=== PATIENT | male | born 1955 | race Caucasian/White ===

== ENCOUNTER 2019-07-23 11:24 | Outpatient (REF) | payer MEDICAID, SELFPAY ==
[2019-07-23 18:20] LABS: TSH (W/Ref FT4) 6.79 uIU/mL (0.36-3.74)
[2019-07-23 18:27] LABS: Hemoglobin A1C 5.9 % (3.8-5.6)
[2019-07-23 18:44] LABS: FREE T4 0.87 ng/dL (0.76-1.46)
== END 2019-07-23 11:44 ==
LOC: NCHCN 11:24
PROVIDERS: PCP Nurse Practitioner Family; Visit Provider Nurse Practitioner Family
DX: E03.9 Hypothyroidism, unspecified (principal); R53.83 Other fatigue; F17.210 Nicotine dependence, cigarettes, uncomplicated; R73.09 Other abnormal glucose
CPT/HCPCS: 83036; 84439; 84443

== ENCOUNTER 2020-03-06 18:34 | Outpatient (REF) | payer MEDICAID, SELFPAY ==
[2020-03-06 18:44] LABS: HCT 47.7 % (40.0-50.0); MCHC 33.5 % (32.0-36.0); MCV 92.4 fL (80-95); MPV 10.7 fL (8.0-11.0); Platelet Count 232 10^3/uL (130-400); RBC 5.16 10^6/uL (4.36-5.78); RDW 13.3 % (11.8-14.1); RDW-SD 45.5 fL; WBC 10.75 10^3/uL (4.4-10.8)
[2020-03-06 19:01] LABS: Anion Gap 9.6 mmol/L (3-11); BUN 18 mg/dL (7-18); CO2 25.4 mmol/L (21.0-32.0); CREATININE 0.96 mg/dL (0.70-1.30); Calcium 8.7 mg/dL (8.5-10.1); Calculated LDL 145 mg/dL (<100); Chloride 107 mmol/L (98-107); Cholesterol 192 mg/dL (<200); Glucose 99 mg/dL (74-106); HDL Cholesterol 33 mg/dL (40-60); Potassium 4.4 mmol/L (3.5-5.1); Sodium 142 mmol/L (136-145); TSH (W/Ref FT4) 3.83 uIU/mL (0.36-3.74); Triglyceride 70 mg/dL (<150)
[2020-03-06 19:15] LABS: Hemoglobin A1C 5.8 % (<5.7)
[2020-03-06 19:18] LABS: FREE T4 0.99 ng/dL (0.76-1.46)
== END 2020-03-06 18:54 ==
LOC: NCHCN 18:34
PROVIDERS: PCP Nurse Practitioner Family; Visit Provider Nurse Practitioner Family
DX: R73.03 Prediabetes (principal); R03.0 Elevated blood-pressure reading, without diagnosis of hypertension; E03.9 Hypothyroidism, unspecified; Z13.220 Encounter for screening for lipoid disorders
CPT/HCPCS: 80048; 80061; 85027; 83036; 84439; 84443

== ENCOUNTER 2020-03-27 02:39 | Outpatient (CLI) | payer MEDICAID, SELFPAY ==
[2020-03-28 16:50] LABS: COVID-19 RT-PCR UVMMC Result Negative (Negative)
== END 2020-03-27 02:59 ==
PROVIDERS: PCP Nurse Practitioner Family; Visit Provider Surgery
DX: Z11.59 Encounter for screening for other viral diseases (principal); Z01.818 Encounter for other preprocedural examination
CPT/HCPCS: U0003

== ENCOUNTER 2020-03-30 05:58 | Day surgery (SDC) | payer MEDICAID, SELFPAY ==
[2020-03-30 06:24] VITALS: BP 127/74; PULSE 67; RESP 18; TEMP 36.6; O2SAT 94
[2020-03-30] MEDS: Lactated Ringers 1,000 ML 80 ML IV (06:53)
--- NOTE | 2020-03-30 07:44 | BOWEL_PTH ---
PATIENT: Koffi Mendoza LOC: [facility] U#:[id number] AGE/SX: 64/M ROOM: RE03/30/[address]: Nicole Myrick : 1955 BED: DIS: 03/30/2020 SPEC #: [id number] RECD: 03/30/20 12:20 STATUS: KOURTNEY REQ #: [id number] YOU: 03/30/20 07:[address]: Nicole Myrick DEPT: Surgical Specimen RECD BY: Vane Page ENTERED: 03/30/20 12:21 SP TYPE: Bowel OTHR DR: Michelle Hernandez Tissues: 1 - BIOPSY BOWEL 2 - BIOPSY BOWEL Procedures: GROSS AND MICRO LEVEL 4 Comments: [id number]
--- NOTE | 2020-03-30 08:22 | W.PM.DSUDISC ---
Discharge Plan Disposition Patient Disposition: HOME Condition: Good Discharge Details Reason For Visit: colon scope Attending Provider: Nicole Myrick Primary Care Provider: Michelle Hernandez Home Meds and New Rx's Prescriptions: Continued levothyroxine 75 MCG tablet 75 mcg PO DAILY RF: 0 sildenafil [Viagra] 100 mg tablet 100 mg PO PRN PRNRF: 0 Chantix Continuing Month Box 1 mg tablet 1 mg PO BID RF: 0 Chantix Starting Month Box 0.5 mg (11)- 1 mg (42) tablets,dose pack See Rx Instructions PO PER PKG DIR RF: 0 Discontinued polyethylene glycol 3350 17 gram/dose powder 238 g PO ONCE Qty: 238 RF: 0 bisacodyl [Dulcolax (bisacodyl)] 5 mg tablet,delayed release (DR/EC) 5 mg PO ONCE Qty: 4 RF: 0 Discharge Instructions Additional Instructions: Findings:polyps x4 Follow up: repeat in 3-5 yrs Please call if you develop: fevers >101.5 Nausea or Vomiting Abdominal pain that is not transient DAY SURGERY UNIT POST COLONOSCOPY INSTRUCTIONS 1. Because there will be medication in your system for the next 24 hours, you may feel a little sleepy. Your coordination will be affected. Therefore: a. Do not drive or operate dangerous equipment for 24 hours. b. Do not drink alcohol beverages for 24 hours (not even beer). c. Plan to go home and rest for the day. 2. Generally there are no restrictions on your activity after a day or so has gone by, but you may feel a bit fatigued for a few days. 3 After you arrive home you may have a light meal and return to a normal diet as you can tolerate it without feeling sick to your stomach. 4. After surgery, you may feel pain or discomfort. This should be only transient, but if it persists please contact your doctor. 5. If there are any questions regarding the findings of your procedure, please feel free to contact your doctor. 6. If you are unable to contact your doctor with a problem, contact the hospital at [phone]. 7. Continue all your regular medications unless directed otherwise. I understand the above instructions and have no questions. Signature of Patient or Responsible Adult Escort Date/Time Name of Responsible Adult Escort Signature of Nurse Date/Time Activity:: No lifting over 20 pounds x 24 hours or no strenuous activity Diet:: Small light meals x24 hours pain Discharge Orders Discharge Orders: Discharge Order (Routine); Ordered 03/30/20 Ordered By: Nicole Myrick DS: Diagnosis Discharge Diagnosis (1) Adenomatous polyps: Status: Acute
--- NOTE | 2020-03-30 08:26 | W.PM.OP ---
Date of service: 03/30/20 Time of Service: 08:26 Operative Note Operative Note DATE OF PROCEDURE: 03/30/20 PRE-OP DIAGNOSIS: A. polyps POST-OP DIAGNOSIS: same SURGEON: Nicole Myrick ANESTHESIA: GETA ESTIMATED BLOOD LOSS: 1 PATHOLOGY: other Patient was transported to: same day Procedure Description: After informed consent was obtained the patient was taken to the procedure room and placed in a left decubitous position. Monitors were applied and a time out was done. The patients name, date of , procedure, allergies to medications and metal in their body was reviewed. The patient was then sedated. Once sedated and comfortable a rectal exam was done. External exam was normal. Internal exam revealed a normal sphincter tone and no palpable masses. The scope was then introduced and retrofelexed. NO internal hemorrhoids were identified. The scope was then advanced to the cecum w/out difficulty. The TI and appendiceal orifice were identified. The prep was incomplete. The scope was then slowly retracted over 20 minutes back into the rectum. Polyps were removed at . 30x 2 with a cold biting forcep. Also a polyp was removed at 40 cm with a hot snare. All specimens are retrieved and no bleeding is noted. There is no AVMs or diverticula apparent. The scope was removed and the patient was woken up and taken back to Same day surgery in stable condition. The patient tolerated the procedure well and there were no immediate complications. Follow up: The patient should follow up in 3-5 years unless they develop changes in bowel habits or other new gastrointestinal complaints.
[2020-03-30 08:50] VITALS: BP 120/70; PULSE 53; RESP 16; TEMP 36.5; O2SAT 96
== END 2020-03-30 08:59 | disposition home or self-care (01) ==
PROVIDERS: PCP Nurse Practitioner Family; Visit Provider Surgery
PROC: 0DJD8ZZ Inspection of Lower Intestinal Tract, Via Natural or Artificial Opening Endoscopic (ICD-10-PCS; CPT 45378; principal; 2020-03-30 07:30)
DX: Z12.11 Encounter for screening for malignant neoplasm of colon (principal); D12.5 Benign neoplasm of sigmoid colon; K63.5 Polyp of colon; Z86.010 Personal history of colon polyps; Z80.0 Family history of malignant neoplasm of digestive organs; R73.03 Prediabetes; E03.9 Hypothyroidism, unspecified
CPT/HCPCS: 45385; 45380; 88305; J2001

== ENCOUNTER 2020-10-26 03:20 | Outpatient (CLI) | payer MEDICAID, SELFPAY ==
--- NOTE | 2020-10-26 | DI.CTLCSR_ITS ---
Exam(s) CT CHEST LUNG CANCER SCREEN EXAM: CT CHEST LUNG CANCER SCREEN CLINICAL HISTORY: TOBACCO ABUSE, F17.210. TECHNIQUE: Imaging Protocol: Low Dose Technique CONTRAST MATERIAL: None COMPARISON: No exams were available for comparison FINDINGS: CHEST: LUNGS: There are no ominous pulmonary nodules. There are no confluent infiltrates in the right lung. There is some mild infiltrate in the lingular segment of the left lung. Mild benign-appearing incre ased markings are noted the posterior basal segments of both lower lobes.. There are no pleural effu sions. Biapical bullae are noted MEDIASTINUM: There is no obvious hilar nor mediastinal adenopathy. CARDIAC: Heart size is normal. There is no pericardial effusion.Caliber of the thoracic aorta is wit hin normal limits. OTHER: OSSEOUS: No significant osseous lesions.. IMPRESSION: 1. Mild benign-appearing infiltrate in the lingular segment of the left lung. 2. No pleural effusions nor obvious intrathoracic adenopathy. 3. Lung RADS Cat 2 - Benign Appearance / Behavior: Nodules with a very low likelihood of becoming a c linically active cancer due to size or lack of growth Lung-RADS 1.0 CATEGORIES: Category 0 - Prior chest CT exam(s) being located for comparison. Category 1 - Annual screening in 12 months. No nodules or definitely benign nodules. Category 2 - Annual screening in 12 months. Benign appearance. Nodules with low likelihood of becomin g active cancer. Category 3 - 6-month follow-up. Probably benign. Short-term follow-up suggested. Nodules with low lik elihood of becoming active cancer. Category 4A - 3-month follow-up and CT/PET if >8 mm in size. Suspicious finding. Findings which requi re additional testing. Category 4B - Findings which require additional testing and tissue sampling. Modifier S- Potentially clinically significant findings (non lung cancer) RADIATION DOSE DELIVERED: 86.82mGy.cm Total DLP 1.84mGy CTDIvol DATA REPOSITORY: All CT scans at this facility are submitted to the National Radiology Data Registry (NRDR) Dose Index Registry (DIR) with the [employer] (A[employer]). RADIATION OPTIMIZATION: All CT scans at this facility use at least one of these dose optimization te chniques: automated exposure control; mA and/or kV adjustment per patient size (includes targeted exa ms where dose is matched to clinical indication); or iterative reconstruction.
== END 2020-10-26 03:40 ==
PROVIDERS: PCP Nurse Practitioner Family; Visit Provider Nurse Practitioner Family
DX: Z12.2 Encounter for screening for malignant neoplasm of respiratory organs (principal); R91.8 Other nonspecific abnormal finding of lung field; F17.200 Nicotine dependence, unspecified, uncomplicated
CPT/HCPCS: 71271

== ENCOUNTER 2021-03-21 20:57 | Outpatient (REF) | payer MEDICAID, SELFPAY ==
[2021-03-21 20:22] LABS: Hemoglobin A1C 5.9 % (<5.7)
[2021-03-21 20:33] LABS: Anion Gap 11.3 mmol/L (3-11); BUN 16 mg/dL (7-18); CO2 26.7 mmol/L (21.0-32.0); CREATININE 0.9 mg/dL (0.70-1.30); Calcium 8.9 mg/dL (8.5-10.1); Calculated LDL 166 mg/dL (<100); Chloride 102 mmol/L (98-107); Cholesterol 228 mg/dL (<200); Glucose 140 mg/dL (74-106); HDL Cholesterol 49 mg/dL (40-60); Potassium 4.1 mmol/L (3.5-5.1); Sodium 140 mmol/L (136-145); TSH (W/Ref FT4) 3.53 uIU/mL (0.36-3.74); Triglyceride 69 mg/dL (<150)
[2021-03-26 10:23] LABS: HIV-1/2 Ag & Ab Screen Negative (Negative)
[2021-03-26 10:33] LABS: Hepatitis C Ab w Rflx HCV PCR Negative (Negative)
== END 2021-03-21 20:58 | disposition home or self-care (01) ==
LOC: NCHCN 20:57
PROVIDERS: PCP Nurse Practitioner Family; Visit Provider Family Medicine
DX: R73.03 Prediabetes (principal); E03.9 Hypothyroidism, unspecified; Z13.220 Encounter for screening for lipoid disorders; Z11.4 Encounter for screening for human immunodeficiency virus [HIV]; Z11.59 Encounter for screening for other viral diseases
CPT/HCPCS: 80048; 80061; 86803; 87389; 83036; 84443

== ENCOUNTER 2021-04-16 15:52 | Emergency (ER) | payer MEDICAID, SELFPAY ==
[2021-04-16] VITALS (26 sets, daily range): BP systolic 111–164; BP diastolic 58–105; PULSE 50–78; RESP 13–23; TEMP 36.1–36.8; O2SAT 92–98
--- NOTE | 2021-04-16 15:45 | RT.EKG_ITS ---
APPROVED REPORT Exam: Resting ECG Reason for Exam: chest pain Patient Location: E HR:56 bpm ECG Measurements Heart Rate 56 AXIS [place] 142 P 74 QRSd 111 QRS 90 QT 403 T -18 QTc 389 Conclusion Sinus bradycardia...rate< 60 Probable left atrial enlargement No ST elevation
--- NOTE | 2021-04-16 16:03 | ED.GENADUL_ITS ---
Discharge Plan Disposition Patient Disposition: [facility] Condition: Serious Discharge Details Clinical Impression: Non-ST elevation OK (NSTEMI) Primary Care Provider: Michelle Hernandez ED Provider: Shar Singh Home Meds and New Rx's Prescriptions: No Action varenicline [Chantix Continuing Month Box] 1 mg tablet 1 mg PO BID RF: 0 Chantix Starting Month Box 0.5 mg (11)- 1 mg (42) tablets,dose pack See Rx Instructions PO PER PKG DIR RF: 0 simvastatin 20 mg tablet 20 mg PO DAILY RF: 0 Medical Decision Making <REJI Benites - Last Filed: 04/16/21 19:37> This is a 65-year-old gentleman, current at least 2 pack a day smoker, presenting to the ER for events are concerning chest pain story. Developed severe chest pain that radiated to his right arm with right arm paresthesias with exertion. States that he was also diaphoretic, nauseous, vomiting x2. He did take a single baby aspirin. He states that his discomfort lasted for approximately 45 minutes and upon arrival here in the ER he states his chest pain, radiation of discomfort to his right arm, paresthesias, nausea and vomiting have resolved completely. He does report a baseline chest tightness which he attributes to his lungs and states this is being worked up through his primary care provider. Will provide the patient with an additional 3 baby aspirin and initiate a cardiac work-up. Given he has no pain at the moment we will hold on any nitro. Laboratory values resulted, unremarkable CBC and CMP. We were contacted with a critical troponin of 3117 at 1720. The EKG was immediately sent to [facility] and I requested a cardiology transfer for NSTEMI. In the meantime his D-dimer came back at 548, negative when age-adjusted. Will not pursue CTA of the chest. TSH 5.21. Covid test pending. I received a call back at 1751 from cardiology, Dr. Caldwell, at [facility]. He recommends a repeat troponin, initiating 12.5 p.o. metoprolol, 40 p.o. rosuvastatin, 600 p.o. loading dose of Plavix, heparin bolus and drip ACS protocol, a single sublingual nitro start a nitro drip. Repeat EKG performed at 1803, sinus bradycardia, ventricular to 50. Incomplete left bundle branch block. T waves do appear less peaked when compared to initial EKG Received a call back from the [facility] transfer center at 1832, they are accepting transfer into the care of Dr. Kim, awaiting callback with bed status placement. He remains hemodynamically stable under my care. He denies any change in his symptoms after the medications have been given. 193 we received a call from [facility] with bed assignment. All appropriate transfer paperwork completed This documentation was generated using [employer] system, please disregard any oddities of phrase or misspellings. Medical Records Medical records reviewed: Yes I reviewed the patient's medical records. Imaging Data Radiologic Study: Attestation: I personally reviewed and interpreted this imaging study as follows: Imaging: X-Ray Radiologist's impression: Negative chest x-ray Lab Data Lab results reviewed: Yes I reviewed the patient's lab results. Labs: Laboratory Tests Range/Units 04/16/21 04/16/21 04/16/21 16:15 16:15 16:15 WBC (4.4-10.8) 10^3/uL 10.24 RBC (4.36-5.78) 10^6/uL 5.22 Hgb (13.5-17.5) g/dL 16.7 Hct (40.0-50.0) % 49.8 MCV (80-95) fL 95.4 H MCH (27.0-33.0) pg 32.0 MCHC (32.0-36.0) % 33.5 RDW (11.8-14.1) % 12.5 Plt Count (130-400) 10^3/uL 222 MPV (8.0-11.0) fL 10.5 Immature Gran % 0.4 Neutrophils % 70.9 Lymphocytes % 19.1 Monocytes % 7.2 Eosinophils % 2.1 Basophils % 0.3 Nucleated RBC % % 0 Absolute Neutrophils (1.2-6.7) 10^3/uL 7.26 H Absolute Lymphocytes (1.2-3.4) 10^3/uL 1.96 Absolute Monocytes (0.1-0.8) 10^3/uL 0.74 Absolute Eosinophils (0.0-0.7) 10^3/uL 0.21 Absolute Basophils (0.0-0.2) 10^3/uL 0.03 PT (9.3-11.0) sec INR (0.9-1.1) APTT (21.0-27.5) sec D-Dimer (<500) ng/mlFEU Sodium (136-145) mmol/L 137 Potassium (3.5-5.1) mmol/L 4.1 Chloride (98-107) mmol/L 103 Carbon Dioxide (21.0-32.0) mmol/L 26.5 Anion Gap (3-11) mmol/L 7.5 BUN (7-18) mg/dL 15 Creatinine (0.70-1.30) mg/dL 0.8 Estimated GFR/1.73 m2 (mL/min/1.73m2) >= 60.00 Glucose (74-106) mg/dL 101 Calcium (8.5-10.1) mg/dL 8.8 Magnesium (1.8-2.4) mg/dL 2.2 Total Bilirubin (0.2-1.0) mg/dL 0.4 AST (15-37) U/L 34 ALT (16-63) U/L 34 Alkaline Phosphatase (46-116) U/L 94 Troponin I (<or=60) ng/L 3117 H* Total Protein (6.4-8.2) g/dL 7.3 Albumin (3.4-5.0) g/dL 3.8 TSH (0.36-3.74) uIU/mL 5.21 H Free T4 (0.76-1.46) ng/dL 0.79 COVID-19 Source Range/Units 04/16/21 04/16/21 16:55 17:10 WBC (4.4-10.8) 10^3/uL RBC (4.36-5.78) 10^6/uL Hgb (13.5-17.5) g/dL Hct (40.0-50.0) % MCV (80-95) fL MCH (27.0-33.0) pg MCHC (32.0-36.0) % RDW (11.8-14.1) % Plt Count (130-400) 10^3/uL MPV (8.0-11.0) fL Immature Gran % Neutrophils % Lymphocytes % Monocytes % Eosinophils % Basophils % Nucleated RBC % % Absolute Neutrophils (1.2-6.7) 10^3/uL Absolute Lymphocytes (1.2-3.4) 10^3/uL Absolute Monocytes (0.1-0.8) 10^3/uL Absolute Eosinophils (0.0-0.7) 10^3/uL Absolute Basophils (0.0-0.2) 10^3/uL PT (9.3-11.0) sec 10.5 INR (0.9-1.1) 1.0 APTT (21.0-27.5) sec 22.2 D-Dimer (<500) ng/mlFEU 548 H Sodium (136-145) mmol/L Potassium (3.5-5.1) mmol/L Chloride (98-107) mmol/L Carbon Dioxide (21.0-32.0) mmol/L Anion Gap (3-11) mmol/L BUN (7-18) mg/dL Creatinine (0.70-1.30) mg/dL Estimated GFR/1.73 m2 (mL/min/1.73m2) Glucose (74-106) mg/dL Calcium (8.5-10.1) mg/dL Magnesium (1.8-2.4) mg/dL Total Bilirubin (0.2-1.0) mg/dL AST (15-37) U/L ALT (16-63) U/L Alkaline Phosphatase (46-116) U/L Troponin I (<or=60) ng/L Total Protein (6.4-8.2) g/dL Albumin (3.4-5.0) g/dL TSH (0.36-3.74) uIU/mL Free T4 (0.76-1.46) ng/dL COVID-19 Source Nasal/Nares ECG Data Attestation: I personally reviewed and interpreted this ECG (s) as follows: Interpretation: Please see official report by Dr. Cash. Sinus bradycardia, ventricular rate of 56. No STEMI. <Dennys Cash MD - Last Filed: 04/16/21 18:31> Patient seen, evaluated at bedside, and I agree with Mr Singh's plan of care including tertiary care/cardiology consultation. HPI <REJI Benites - Last Filed: 04/16/21 19:37> General Mode of arrival: ambulatory . Date/Time Provider Initiated Documentation: 04/16/21 15:55 . Limitations to Documentation: no limitations . Information obtained by: patient and family . HPI Narrative: This is a 65-year-old gentleman, smokes at least 2 packs of cigarettes daily, history of hyperlipidemia, hypertension, presenting to the ER for evaluation of chest pain that began approximately 2 hours ago while jacking of his trailer. He states that the pain in his chest was diffuse, sharp, and did radiate to his right arm, associated with paresthesias in his right hand, diaphoresis and nausea with vomiting x2. Patient states that the symptoms lasted for at least 45 minutes. He initially thought this may be secondary to gas as he had belched a few times. He has never had any symptoms like this previously, has never had a cardiac work-up including stress test or echocardiogram. He states that he is currently being evaluated for lung disease through his PCP and is scheduled for a breathing test. Reports a baseline chest tightness secondary to what he explains as lung disease. Related Data Home Medications Medication Instructions Recorded Confirmed varenicline 0.5 mg (11)-1 mg (42) See Rx Instructions PO PER PKG DIR 02/16/20 04/16/21 tablets in a dose pack varenicline 1 mg tablet 1 mg PO BID 02/16/20 04/16/21 simvastatin 20 mg PO DAILY 04/16/21 04/16/21 Allergies Allergy/AdvReac Type Severity Reaction Status Date / Time aspirin Allergy Severe chest Verified 04/16/21 16:01 pressure, tachycardia General Stated Complaint: Chest Pain XENIA: 3 Review of Systems <REJI Benites - Last Filed: 04/16/21 19:37> Constitutional Constitutional: Denies fatigue, Denies fever(s) and Denies headache(s) Eyes Eyes: Denies change in vision ENT Ears, Nose, Mouth, and Throat: Denies headache(s) and Denies neck pain Cardiovascular Cardiovascular: Reports chest pain, Reports radiating jaw, neck or arm pain and Denies dyspnea Respiratory Respiratory: Denies dyspnea Gastrointestinal Gastrointestinal: Denies abdominal pain, Reports nausea and Reports vomiting Musculoskeletal Musculoskeletal: Denies back pain and Denies neck pain Integumentary/Breasts Skin/Breast: Denies rash Neurologic Neurologic: Denies headache(s) Endocrine Endocrine: Denies fatigue Hematologic/Lymphatic Hematologic/Lymphatic: Denies easy bleeding and Denies easy bruising PFSH <REJI Benites - Last Filed: 04/16/21 19:37> All Active Problems Non-ST elevation OK (NSTEMI) (Acute) Tubular adenoma (Acute ~03/2020) Adenomatous polyps (Acute) Rotator cuff tear (Acute 06/17/13) Status post rotator cuff repair (Acute 06/17/13) Repair done by Dr. Dennys Metz Medical History Adenomatous colon polyp Elevated blood pressure reading Erectile dysfunction Family history of colon cancer Hypothyroidism Inguinal hernia Malaise and fatigue Prediabetes Tobacco abuse Unspecified hearing loss Surgical History Colonoscopy - IV Sedation (05/03/16) History of colonoscopy (~03/31/20) Stoiber tubular adenoma 3 year Rotator Cuff Repair (06/18/13) left Family History Father Colon cancer Other Heart disease Social History Smoking/Tobacco Use Status: Current every day Tobacco Type: cigarettes Smoking packs per day: 2 Smoking cigarettes per day: 40.0 Smoking risk assessment performed?: Yes Alcohol Intake: current Alcohol Intake frequency: a few times a month Drug use: Never Substance use type: does not use Do you feel safe at home: Yes Do you feel safe in your relationship?: Yes Exam <REJI Benites - Last Filed: 04/16/21 19:37> Const General: cooperative, healthy appearing, comfortable and no acute distress Orientation: alert, awake and oriented x3 HENMT Head: normal to inspection, normocephalic and atraumatic Face and sinus: normal facial exam Mouth: moist mucous membranes Eyes General: appearance normal, both eyes and all related structures Conjunctivae: conjunctivae normal Neck Neck: normal visual inspection, full ROM, no meningeal signs, trachea midline, supple and nontender Resp Effort & Inspection: normal respiratory effort and able to speak in complete sentences Auscultation: diminished lung sounds bilaterally in the lower lung stanley Cardio Rate: bradycardic (58) Rhythm: regular rhythm GI Palpation: soft, not firm, no guarding, not rigid and nontender Auscultation: normal bowel sounds Back/Spine/Pelvis Back: No back tenderness Skin General skin exam: no rashes or lesions noted Neuro General: patient alert, patient awake, patient oriented x3, moves all extremities and no focal motor deficits Cognition: normal cognition Speech: speech normal Gait: normal gait Sensory Exam: no sensory deficits noted Extrem General: normal to inspection, full ROM, capillary refill normal, no pedal edema and no calf tenderness Psych Appearance: grossly normal Mental Status: mental status grossly normal Course <REJI Benites - Last Filed: 04/16/21 19:37> Vital Signs Vital signs: Vital Signs Temperature 36.8 C 04/16/21 15:59 Pulse 68 04/16/21 15:59 Respiratory Rate 18 04/16/21 15:59 Blood Pressure 164/94 H 04/16/21 15:59 Pulse Oximetry 98 04/16/21 15:59 Temperature 36.8 C 04/16/21 15:59 Temperature Source Temporal Artery Scan 04/16/21 15:59 Pulse 68 04/16/21 15:59 Respiratory Rate 18 04/16/21 15:59 Blood Pressure 164/94 H 04/16/21 15:59 Blood Pressure Position Sitting 04/16/21 15:59 Pulse Oximetry 98 04/16/21 15:59 Oxygen Delivery Method Room Air 04/16/21 15:59 Oxygen Flow Rate 0 04/16/21 15:59 Pain Level 1 04/16/21 15:59 Critical Care Time <REJI Benites - Last Filed: 04/16/21 19:37> Critical Care Time Critical Care Time: Yes Total Critical Care Time: 45 Attestation: Upon my evaluation, this patient had a high probability of clinically significant, life-threatening deterioration due to their current medical conditions, which required my direct attention, intervention, and personal management. I have personally provided greater than 30 minutes of critical care time exclusive of the time spend on separately billable procedures. Time includes obtaining a history, examining the patient, pulse oximetry, review of laboratory data, radiology results, discussion with consultants, arranging urgent treatment with development of a management plan, evaluation of patient's response to treatment, and monitoring for potential decompensation. Interventions were performed as documented above.
--- NOTE | 2021-04-16 16:15 | DI.RAD_ITS ---
Exam(s) XR CHEST 2V PA LATERAL EXAM: XR CHEST 2V PA LATERAL CLINICAL HISTORY: chest pain TECHNIQUE: 2D digital imaging was performed of the chest. Two images were obtained. PA and lateral views were obtained. COMPARISON: CR CHEST 2 VIEWS PA,LAT from 09/03/2014 FINDINGS: MEDIASTINUM: Normal. HEART: Normal. PULMONARY VASCULATURE: Normal. LUNGS: Clear. PLEURAL SPACE: No pleural effusion or pneumothorax. BONE:Within normal limits for the patient's age. OTHER FINDINGS:Normal. IMPRESSION: No acute pulmonary findings. DATA REPOSITORY: RADIATION DOSE DELIVERED:
[2021-04-16 16:42] LABS: Abs Immature Grans 0.04 10^3/uL (0.0-0.06); Absolute Basophil Count 0.03 10^3/uL (0.0-0.2); Absolute Eosinophil Count 0.21 10^3/uL (0.0-0.7); Absolute Lymphocyte Count 1.96 10^3/uL (1.2-3.4); Absolute Monocyte Count 0.74 10^3/uL (0.1-0.8); Absolute Neutrophil Count 7.26 10^3/uL (1.2-6.7); Basophils % 0.3; Eosinophils % 2.1; HCT 49.8 % (40.0-50.0); HGB 16.7 g/dL (13.5-17.5); Immature Grans % 0.4; Lymphocytes % 19.1; MCHC 33.5 % (32.0-36.0); MCV 95.4 fL (80-95); MPV 10.5 fL (8.0-11.0); Monocytes % 7.2; Neutrophils % 70.9; Nucleated RBC 0 %; Platelet Count 222 10^3/uL (130-400); RBC 5.22 10^6/uL (4.36-5.78); RDW 12.5 % (11.8-14.1); RDW-SD 44.4 fL; WBC 10.24 10^3/uL (4.4-10.8)
[2021-04-16 17:03] LABS: ALT 34 U/L (16-63); AST 34 U/L (15-37); Albumin 3.8 g/dL (3.4-5.0); Alkaline Phosphatase 94 U/L (46-116); Anion Gap 7.5 mmol/L (3-11); BUN 15 mg/dL (7-18); Bilirubin, Total 0.4 mg/dL (0.2-1.0); CO2 26.5 mmol/L (21.0-32.0); CREATININE 0.8 mg/dL (0.70-1.30); Calcium 8.8 mg/dL (8.5-10.1); Chloride 103 mmol/L (98-107); Glucose 101 mg/dL (74-106); Magnesium 2.2 mg/dL (1.8-2.4); Potassium 4.1 mmol/L (3.5-5.1); Sodium 137 mmol/L (136-145); Total Protein 7.3 g/dL (6.4-8.2)
[2021-04-16 17:15] LABS: Source Nasal/Nares
[2021-04-16 17:16] LABS: PTT Activated 22.2 sec (21.0-27.5); Prothrombin Time 10.5 sec (9.3-11.0)
[2021-04-16 17:21] LABS: Troponin I 3117 ng/L (<or=60)
[2021-04-16 17:43] LABS: TSH (W/Ref FT4) 5.21 uIU/mL (0.36-3.74)
--- NOTE | 2021-04-16 17:45 | RT.EKG_ITS ---
APPROVED REPORT Exam: Resting ECG Reason for Exam: chest pain Patient Location: E HR:50 bpm ECG Measurements Heart Rate 50 AXIS [place] 130 P 0 QRSd 113 QRS 74 QT 435 T 17 QTc 397 Conclusion Sinus bradycardia Incomplete left bundle branch block.. No ST elevation, improvement of previous hyperacute t waves
[2021-04-16 17:47] LABS: D-Dimer 548 ng/mlFEU (<500)
[2021-04-16] MEDS: Aspirin 81 MG CHEW 243 MG CH (17:55)
--- NOTE | 2021-04-16 18:02 | DI.VRAD_ITS ---
PROCEDURE INFORMATION: Exam: XR Chest Exam date and time: 04/16/2021 4:29 PM Age: 65 years old Clinical indication: Other: Chest pain TECHNIQUE: Imaging protocol: XR of the chest. Views: 2 views. COMPARISON: CT CHEST LUNG CANCER SCREEN 10/26/2020 3:11 PM FINDINGS: Lungs: Unremarkable. No consolidation. Pleural spaces: Unremarkable. No pleural effusion. No pneumothorax. Heart/Mediastinum: Unremarkable. No cardiomegaly. Bones/joints: Unremarkable. IMPRESSION: No acute findings. Dictated and Authenticated by: Benny Adams MD. Ordering:JOSHUA Myles MD
[2021-04-16 18:07] LABS: FREE T4 0.79 ng/dL (0.76-1.46)
[2021-04-16] MEDS: Clopidogrel 300 MG TAB 600 MG PO (18:12)
[2021-04-16 18:28] LABS: COVID-19 PCR Negative (Negative)
[2021-04-16] MEDS: Metoprolol 12.5 MG TAB PO (18:28)
[2021-04-16] MEDS: Rosuvastatin 10 MG TAB 40 MG PO (18:30)
[2021-04-16] MEDS: nitroGLYcerin in D5W 50 MG/250 ML BTL IV ×2 (19:24→19:59)
[2021-04-16 20:02] LABS: Troponin I 16132 ng/L (<or=60)
[2021-04-16] MEDS: nitroGLYcerin in D5W 50 MG/250 ML BTL 6 MG IV (20:02)
[2021-04-16] MEDS: nitroGLYcerin in D5W 50 MG/250 ML BTL 9 MG IV (20:12)
== END 2021-04-16 20:22 | disposition short-term general hospital (02) ==
PROVIDERS: Emergency Provider Physician Assistant; PCP Nurse Practitioner Family
DX: I21.4 Non-ST elevation (NSTEMI) myocardial infarction (principal); F17.210 Nicotine dependence, cigarettes, uncomplicated; I44.7 Left bundle-branch block, unspecified; E03.9 Hypothyroidism, unspecified; Z20.822 Contact with and (suspected) exposure to COVID-19
CPT/HCPCS: 80053; 87635; 93005; 96365; 96367; 96376; 99291; 71046; 83735; 84439; 84443; 84484; 85025; 85379; 85610; 85730; 93010; J3490